=== PATIENT | male | born 1975 | race Caucasian/White ===

== ENCOUNTER 2017-05-08 12:47 | Emergency (ER) | payer BC ==
[~2017-05-08] VITALS: Ht 175.2 cm; Wt 72.6 kg
[~2017-05-08 12:47] MED LIST: ANAPROX DS550 MG PO; ANTIBIOTIC O500 U/GM TP; APRISO0.375 GM PO; BACTRIM DS 8001 TA1 PO; CIPRO500 MG PO; CIPROFLOXACIN2.5 ML; CIPROFLOXACIN500 MG PO; DAYPRO600 M1 PO; DICLOFENAC SOD75 MG PO; FLEXERIL5 MG PO; FLOMAX0.4 MG PO; HYDR25T PO; HYDROCODONE BIT1 T11 PO; HYDROCODONE BIT1 T51 PO; HYTRIN1 MG PO; K-TAB20 MEQ PO; KEFLEX500 MG PO; Lortab 5/500 501 TAB PO; MAGNESIUM100 M1 PO; MAGOX 400400 MG PO; MOTRIN800 MG PO; NKHM; NKHM PO; NORCO 325 MG-51 TAB PO; NORFLEX100 MG PO; OXYCODONE5 M1 PO; PERCOCET 325 MG1 TA2 PO; PERCOCET 325 MG1 TA5 PO; PERCOCET 325 MG1 TA6 PO; POTASSIUM CHLO20 ME3 PO; POTASSIUM99 M4 PO; PYRIDIUM200 MG PO; RESTORIL30 M1 PO; SEPTRA DS 800 M1 TAB PO; TAMSULOSIN HYD0.4 MG PO; TRAMADOL HCL50 MG PO; VICODIN 5/500 505 MG PO; VICODIN 500 MG-1 TAB PO; VICODIN ES 7501 TAB PO; Vicodin 5/500 505 MG PO; ZITHROMAX Z PA250 MG PO; ZOFRAN ODT4 MG SL
[2017-05-08 13:07] LABS: BASO # 0.1 10*3/uL (0.0-0.1); BASO % 0.5 % (0.0-1.0); EOS # 0.3 10*3/uL (0.0-0.4); EOS % 2.2 % (1.0-4.0); HEMOGLOBIN 16.1 g/dl (14.0-18.0); LYMPH # 2.4 10*3/uL (1.3-4.4); LYMPH % 18.2 % (27.0-41.0); MEAN CELL VOLUME 96.4 fl (80.0-94.0); MEAN CORPUSCULAR HGB 33.8 pg (27.0-31.0); MEAN PLATELET VOLUME 8.8 fl (9.6-12.3); MONO # 0.7 10*3/uL (0.1-1.0); NEUT # 9.6 10*3/uL (2.3-7.9); NEUT % 73.9 % (47.0-73.0); PLATELET COUNT AUTOMATED 528 10*3/uL (130-400); RED BLOOD COUNT 4.77 10*6/uL (4.50-5.90)
[2017-05-08 13:22] LABS: ALBUMIN 3.5 gm/dl (3.1-4.5); ALKALINE PHOSPHATASE 106 U/L (45-117); BUN 9 mg/dl (7-24); CHLORIDE 105 mmol/L (98-107); CREATININE 1.19 mg/dL (0.70-1.30); POTASSIUM 3.3 mmol/L (3.5-5.1); SGOT/AST 19 IU/L (3-35); SGPT/ALT 36 U/L (12-78); SODIUM 137 mmol/L (136-145); TOTAL PROTEIN 7.3 gm/dL (6.4-8.2)
[2017-05-08 13:35] LABS: BILIRUBIN NEGATIVE (NEGATIVE); BLOOD 1+ (NEGATIVE); CLARITY SL CLOUDY (CLEAR); COLOR YELLOW (YELLOW); GLUCOSE NEGATIVE (NEGATIVE); KETONE NEGATIVE (NEGATIVE); LEUKO ESTERASE NEGATIVE (NEGATIVE); NITRITE NEGATIVE (NEGATIVE); SPECIFIC GRAVITY >= 1.030 (1.005-1.030); UROBILINOGEN 0.2 E.U./dl (0.2-1.0)
[2017-05-08 13:46] LABS: BACTERIA TRACE; MUCOUS 3+
== END 2017-05-08 14:39 | disposition home or self-care (01) ==
LOC: ED 12:47
PROVIDERS: Nurse Practitioner Family
DX: R10.30 Lower abdominal pain, unspecified (principal); R03.0 Elevated blood-pressure reading, without diagnosis of hypertension; F17.200 Nicotine dependence, unspecified, uncomplicated; Z87.442 Personal history of urinary calculi; Z79.899 Other long term (current) drug therapy

== ENCOUNTER 2017-12-01 14:51 | Emergency (ER) | payer BC ==
[~2017-12-01] VITALS: Ht 175.2 cm; Wt 72.6 kg
[2017-12-01] MEDS ORDERED: VICODIN 5-3001 EACH PO (14:56)
[2017-12-01 15:32] LABS: BASO # 0.1 10*3/uL (0.0-0.1); BASO % 0.6 % (0.0-1.0); EOS # 0.4 10*3/uL (0.0-0.4); EOS % 3.5 % (1.0-4.0); HEMATOCRIT 43.5 % (42.0-52.0); HEMOGLOBIN 14.9 g/dl (14.0-18.0); LYMPH # 2.7 10*3/uL (1.3-4.4); LYMPH % 21.3 % (27.0-41.0); MEAN CORPUSCULAR HGB 32.9 pg (27.0-31.0); MEAN CORPUSCULAR HGB CONC 34.3 g/dl (33.0-37.0); MEAN PLATELET VOLUME 8.9 fl (9.6-12.3); MONO # 0.8 10*3/uL (0.1-1.0); MONO % 6.5 % (3.0-9.0); NEUT # 8.5 10*3/uL (2.3-7.9); NEUT % 67.9 % (47.0-73.0); PLATELET COUNT AUTOMATED 484 10*3/uL (130-400); RED BLOOD COUNT 4.53 10*6/uL (4.50-5.90); RED CELL DISTRI WIDTH 13.2 % (0-14.5); WHITE BLOOD COUNT 12.6 10*3/uL (4.8-10.8)
[2017-12-01] MEDS ORDERED: HYDR25T PO (15:37)
[2017-12-01 15:46] LABS: ALBUMIN 3.4 gm/dl (3.1-4.5); ALKALINE PHOSPHATASE 103 U/L (45-117); BUN 6 mg/dl (7-24); CHLORIDE 105 mmol/L (98-107); CREATININE 0.93 mg/dL (0.70-1.30); LIPASE 125 U/L (73-393); POTASSIUM 3.2 mmol/L (3.5-5.1); SGOT/AST 27 IU/L (3-35); SGPT/ALT 47 U/L (12-78); SODIUM 140 mmol/L (136-145); TOTAL PROTEIN 6.5 gm/dL (6.4-8.2)
[2017-12-01 16:35] LABS: BILIRUBIN NEGATIVE (NEGATIVE); BLOOD 3+ (NEGATIVE); CLARITY CLOUDY (CLEAR); COLOR YELLOW (YELLOW); GLUCOSE NEGATIVE (NEGATIVE); KETONE NEGATIVE (NEGATIVE); LEUKO ESTERASE TRACE (NEGATIVE); NITRITE NEGATIVE (NEGATIVE); UROBILINOGEN 0.2 E.U./dl (0.2-1.0)
[2017-12-01 16:43] LABS: BACTERIA 2+; RBC TNTC rbc/hpf (0-2)
[2017-12-01] MEDS ORDERED: CIPRO500 MG PO (16:58)
[2017-12-01] MEDS ORDERED: FLOMAX0.4 MG PO (16:58)
[2017-12-01] MEDS ORDERED: NORCO 5-325 TA1 EACH PO (17:21)
[2017-12-02] MEDS ORDERED: PERCOCET 10-321 EACH PO (12:37)
[2017-12-02] MEDS ORDERED: ZOFRAN ODT4 MG SL (12:38)
== END 2017-12-01 17:18 | disposition home or self-care (01) ==
LOC: ED 14:51
PROVIDERS: Physician Assistant
DX: N39.0 Urinary tract infection, site not specified (principal); E87.6 Hypokalemia; N23 Unspecified renal colic; F17.200 Nicotine dependence, unspecified, uncomplicated; Z79.899 Other long term (current) drug therapy; Z87.442 Personal history of urinary calculi

== ENCOUNTER 2017-12-02 09:15 | Emergency (ER) | payer BC ==
[~2017-12-02] VITALS: Ht 175.2 cm; Wt 72.6 kg
[~2017-12-02 09:15] MED LIST changes: +NORCO 5-325 TA1 EACH PO; +VICODIN 5-3001 EACH PO
[2017-12-02] MEDS ORDERED: PERCOCET 10-321 EACH PO (12:37)
[2017-12-02] MEDS ORDERED: ZOFRAN ODT4 MG SL (12:38)
== END 2017-12-02 12:56 | disposition home or self-care (01) ==
LOC: ED 09:15
DX: N23 Unspecified renal colic (principal); N20.0 Calculus of kidney; F17.200 Nicotine dependence, unspecified, uncomplicated; Z79.899 Other long term (current) drug therapy

== ENCOUNTER → 2018-07-06 | Outpatient (CLI) | payer BC ==
[~2018-07-06] MED LIST changes: +PERCOCET 10-321 EACH PO
[2018-07-06 10:46] LABS: BILIRUBIN NEGATIVE (NEGATIVE); BLOOD 2+ (NEGATIVE); CLARITY CLEAR (CLEAR); COLOR YELLOW (YELLOW); GLUCOSE NEGATIVE (NEGATIVE); KETONE NEGATIVE (NEGATIVE); LEUKO ESTERASE NEGATIVE (NEGATIVE); NITRITE NEGATIVE (NEGATIVE); SPECIFIC GRAVITY >= 1.030 (1.005-1.030); UROBILINOGEN 0.2 E.U./dl (0.2-1.0)
[2018-07-06 11:04] LABS: BACTERIA TRACE; EPITHELIAL CELLS 0-2; RBC 21-30 rbc/hpf (0-2); WBC 0-2 wbc/hpf (0-5)
[2018-07-06 11:15] LABS: BUN 8 mg/dl (7-24); CHLORIDE 102 mmol/L (98-107); CREATININE 0.96 mg/dL (0.70-1.30); PHOSPHOROUS 3.8 mg/dL (2.5-4.9); POTASSIUM 4.7 mmol/L (3.5-5.1); SODIUM 135 mmol/L (136-145); URIC ACID 4.7 mg/dL (3.5-7.2)
[2018-07-06 11:45] LABS: PTH INTACT 93.3 pg/mL (18.5-88.0); VITAMIN D, 25-HYDROXY 24.5 ng/mL (30-100)
== END | disposition home or self-care (01) ==
LOC: LAB 10:27
PROVIDERS: Internal Medicine Nephrology
DX: E87.6 Hypokalemia (principal)

== ENCOUNTER → 2022-07-14 | Outpatient (CLI) | payer MEDICARE | END | disposition home or self-care (01) | LOC: LAB 12:56 | PROVIDERS: ATTEND Family Medicine | DX: N62 Hypertrophy of breast (principal) ==

== ENCOUNTER → 2022-08-10 | Outpatient (CLI) | payer MEDICARE | LOC: US 07-22 11:30 | PROVIDERS: ATTEND Surgery | DX: N62 Hypertrophy of breast (principal) ==

== ENCOUNTER → 2022-08-26 | Day surgery (SDC) | payer MEDICARE ==
[2022-08-23 15:12] VITALS: BP 117/79
[~2022-08-26] VITALS: Ht 175.2 cm; Wt 81.6 kg
[~2022-08-26] MED LIST changes: +COLACE100 MG PO; +HYDROCODONE-AC1 EAC1 PO; +ONDANSETRON HYDR4 M1 PO
[2022-08-26 09:15] VITALS: BP 126/69
[2022-08-26 10:55] VITALS: BP 126/86
[2022-08-26 11:10] VITALS: BP 108/66
[2022-08-26 11:25] VITALS: BP 105/64
[2022-08-26 11:40] VITALS: BP 106/67
[2022-08-26 11:55] VITALS: BP 107/68
== END | disposition home or self-care (01) ==
LOC: SDC 08-23 02:06
PROVIDERS: ATTEND Surgery
DX: N62 Hypertrophy of breast (principal); G47.00 Insomnia, unspecified; F17.210 Nicotine dependence, cigarettes, uncomplicated; Z80.0 Family history of malignant neoplasm of digestive organs

== ENCOUNTER 2022-09-16 16:45 | Emergency (ER) | payer MEDICARE ==
[~2022-09-16] VITALS: Wt 91.5 kg
[2022-09-16 17:05] LABS: BASO # 0.1 10*3/uL (0.0-0.1); BASO % 0.5 % (0.0-1.0); EOS # 0.4 10*3/uL (0.0-0.4); HEMATOCRIT 43.4 % (42.0-52.0); LYMPH # 2.3 10*3/uL (1.3-4.4); LYMPH % 18.5 % (27.0-41.0); MEAN CELL VOLUME 97.1 fl (80.0-94.0); MEAN CORPUSCULAR HGB CONC 32.9 g/dl (33.0-37.0); MEAN PLATELET VOLUME 8.7 fl (9.6-12.3); MONO # 0.9 10*3/uL (0.1-1.0); MONO % 7.2 % (3.0-9.0); NEUT # 8.9 10*3/uL (2.3-7.9); NEUT % 70.4 % (47.0-73.0); PLATELET COUNT AUTOMATED 541 10*3/uL (130-400); RED BLOOD COUNT 4.47 10*6/uL (4.50-5.90); RED CELL DISTRI WIDTH 14.3 % (0-14.5); WHITE BLOOD COUNT 12.6 10*3/uL (4.8-10.8)
[2022-09-16 17:20] LABS: ACT PARTIAL THROMBO TIME 27.5 SECONDS (20.0-32.1); ALKALINE PHOSPHATASE 151 U/L (46-116); BUN 8 mg/dl (9-23); CHLORIDE 100 mmol/L (98-107); POTASSIUM 2.5 mmol/L (3.4-5.1); SGPT/ALT 36 U/L (10-49); TOTAL PROTEIN 7.2 gm/dL (6.0-8.0)
[2022-09-17 06:11] LABS: BASO # 0.1 10*3/uL (0.0-0.1); BASO % 0.5 % (0.0-1.0); EOS # 0.4 10*3/uL (0.0-0.4); EOS % 3.6 % (1.0-4.0); HEMATOCRIT 38.7 % (42.0-52.0); LYMPH # 2.4 10*3/uL (1.3-4.4); MEAN CELL VOLUME 97.5 fl (80.0-94.0); MEAN CORPUSCULAR HGB CONC 33.9 g/dl (33.0-37.0); MEAN PLATELET VOLUME 9.3 fl (9.6-12.3); MONO # 0.8 10*3/uL (0.1-1.0); MONO % 7.1 % (3.0-9.0); NEUT # 7.7 10*3/uL (2.3-7.9); NEUT % 67.4 % (47.0-73.0); PLATELET COUNT AUTOMATED 517 10*3/uL (130-400); RED BLOOD COUNT 3.97 10*6/uL (4.50-5.90); RED CELL DISTRI WIDTH 14.5 % (0-14.5); WHITE BLOOD COUNT 11.4 10*3/uL (4.8-10.8)
[2022-09-17 06:22] LABS: BUN 8 mg/dl (9-23); CHLORIDE 105 mmol/L (98-107)
== END 2022-09-17 08:00 | disposition short-term general hospital (02) ==
LOC: ED 16:45
PROVIDERS: Emergency Medicine; Internal Medicine
DX: I21.4 Non-ST elevation (NSTEMI) myocardial infarction (principal); I10 Essential (primary) hypertension; Z98.890 Other specified postprocedural states; Z90.49 Acquired absence of other specified parts of digestive tract; Z87.891 Personal history of nicotine dependence